=== PATIENT | male | born 1950 | race Caucasian/White ===

== ENCOUNTER 2017-10-16 05:31 | Day surgery (SDC) | payer OTHER ==
[~2017-10-16] VITALS: Ht 175.3 cm; Wt 81.6 kg
--- NOTE | ~2017-10-16 | O ---
[facility] [place] [address] OPERATIVE REPORT Name: LUCÍA TAVERAS Room #: 150-7 [facility]..#: [id number] Admission: 10/16/17 Attend Phys: Alexsander Peres MD Discharge: Date of : 52 Report #: [id number] THIS REPORT FOR: //name// CC: Danyel Peres DATE OF SERVICE: 10/16/2017 PREOPERATIVE DIAGNOSIS: Left knee medial meniscus tear. POSTOPERATIVE DIAGNOSES: 1. Left knee complex tear of the medial meniscus with displaced meniscal flap adjacent to the femoral condyle. 2. Thickened medial plica. PROCEDURE: 1. Left knee arthroscopy with partial medial meniscectomy. 2. Medial plica excision. SURGEON: Alexsander Peres MD. ANESTHESIA: LMA. COMPLICATIONS: None. SPECIMENS: None. TOURNIQUET TIME: 23 minutes. CONDITION UPON LEAVING THE OPERATING ROOM: Stable. INDICATIONS FOR PROCEDURE: The patient is a 67-year-old gentleman who has had medial-sided left knee pain. He had MRI scan shown him to have a tear of his medial meniscus and after discussion with him, he elected for left knee arthroscopy with partial medial meniscectomy. DESCRIPTION OF PROCEDURE: Risks, benefits, alternatives, complications were discussed in detail with the patient including but not limited to risk of anesthesia, risk of damage to nerves, arteries, blood vessels, risk for infection, bleeding, risk for continued knee pain, need for reoperation. Informed consent was obtained from the patient. Left knee was appropriately marked in the preoperative holding area. He was brought to the operating room and placed in supine position on operating room table. LMA anesthesia was induced without complication. Tourniquet was placed on left thigh. Left lower extremity was prepped and draped in normal sterile fashion. Timeout was performed properly identifying the patient and procedure as well as [address] [address] OPERATIVE REPORT Name: LUCÍA TAVERAS Room #: 150-7 [facility]#: [id number] Admission: 10/16/17 Attend Phys: Alexsander Peres MD Discharge: Date of : 52 Report #: [id number] instrumentation. All in the operating room were in agreement. Left lower extremity was exsanguinated, tourniquet was inflated, tourniquet time was 23 minutes. Standard anterolateral portal was established with an 11 blade through the skin. Arthroscope was introduced into the patellofemoral compartment. Diagnostic arthroscopy was undertaken. Patellofemoral compartment was visualized and found to be without pathology. Medial gutter was visualized and found to have a thickened medial plica. Medial compartment was visualized and a medial portal was established under arthroscopic visualization. There was noted to be a flap-like tear of the posterior horn and body of the medial meniscus with a displaced fragment into the medial gutter between the capsule and the medial femoral condyle. This was removed with an oscillating shaver and arthroscopic biter and smoothed back with a shaver. Notch was visualized and found to have an intact anterior cruciate ligament. Lateral compartment was visualized and found to have an intact lateral meniscus. Scope was placed back in the patellofemoral compartment and the medial plica was excised with an oscillating shaver. After this, all fluid was allowed to drain from the knee. The knee was injected with 10 mL 0.5% Marcaine. Incision was closed with 3-0 nylon. Soft dressing of Adaptic, 4 x 4, Webril, Ke wrap were applied. The patient tolerated this procedure well and went to recovery room under care of anesthesia postoperatively. By: [id number] Alexsander Peres MD /nt
[~2017-10-16 05:31] MED LIST: APPLE CIDER VI1 EAC1 PO; CO Q-10100 MG PO; CYTO RALA30 GM PO; ESTER-C 1,0001 EACH PO; FISH OIL 1,001000 M2 PO; FOSAMAX 70 MG T70 MG PO; PROBIOTIC1 EAC1 PO; RESVERATROL100 MG PO; SIMVASTATIN40 MG PO; TURMERIC500 M2 PO; VITAMIN D32000 UNI1 PO; VITAMIN K7 PO
[2017-10-16 08:30] VITALS: BP 135/78
[2017-10-16] MEDS ORDERED: HYDROCODONE-AP1 EAC6 PO (10:36)
[2017-10-16 11:10] VITALS: BP 135/78
== END 2017-10-16 11:37 | disposition home or self-care (01) ==
LOC: TBA 05:31 → OR 05:31
DX: S83.242A Other tear of medial meniscus, current injury, left knee, initial encounter (principal); M67.52 Plica syndrome, left knee; E78.00 Pure hypercholesterolemia, unspecified; Z87.891 Personal history of nicotine dependence; Z98.890 Other specified postprocedural states; Z79.891 Long term (current) use of opiate analgesic; Z79.899 Other long term (current) drug therapy; X58.XXXA Exposure to other specified factors, initial encounter; Y93.89 Activity, other specified; Y92.89 Other specified places as the place of occurrence of the external cause; Y99.8 Other external cause status
CPT/HCPCS: 50010; 50101; 50405; 51038; 54170; 56526; 62110; 62900; 70005

== ENCOUNTER → 2017-11-25 | Outpatient (CLI) | payer OTHER ==
[~2017-11-25] MED LIST changes: +HYDROCODONE-AP1 EAC6 PO
== END ==
LOC: MRI 07:06
DX: S83.242A Other tear of medial meniscus, current injury, left knee, initial encounter (principal); X58.XXXA Exposure to other specified factors, initial encounter; Y93.89 Activity, other specified; Y92.89 Other specified places as the place of occurrence of the external cause; Y99.8 Other external cause status

== ENCOUNTER 2017-12-04 05:36 | Day surgery (SDC) | payer OTHER ==
[~2017-12-04] VITALS: Ht 177.8 cm; Wt 81.6 kg
--- NOTE | ~2017-12-04 | O ---
[facility] [place] [address] OPERATIVE REPORT Name: LUCÍA TAVERAS Room #: DEP [facility]..#: [id number] Admission: 12/04/17 Attend Phys: Alexsander Peres MD Discharge: 12/04/17 Date of : 52 Report #: [id number] THIS REPORT FOR: //name// CC: Danyel Peres DATE OF SERVICE: 12/04/2017 PREOPERATIVE DIAGNOSIS: Left knee recurrent medial meniscus tear. POSTOPERATIVE DIAGNOSES: 1. Left knee recurrent medial meniscus tear. 2. Inner margin fraying, lateral meniscus. PROCEDURES: 1. Left knee arthroscopy with partial medial meniscectomy. 2. Partial lateral meniscectomy. SURGEON: Alexsander Peres MD. MANUFACTURING ENGINEERING MANAGER: Vickie Orozco PA-C. ANESTHESIA: LMA. TOURNIQUET TIME: 15 minutes. COMPLICATIONS: None. SPECIMENS: None. CONDITION UPON LEAVING THE OPERATING ROOM: Stable. INDICATIONS FOR PROCEDURE: The patient is a 67-year-old gentleman who has previously undergone left knee arthroscopy with partial medial meniscectomy. He has had continued knee pain since his knee scope and had a repeat MRI scan showing to have a tear of the posterior horn of the medial meniscus that was not present at his previous arthroscopy. After discussion with him, he elected for left knee arthroscopy with partial medial meniscectomy and debridement as needed. DESCRIPTION OF PROCEDURE: Risks, benefits, alternatives, complications were discussed in detail with the patient including but not limited to risk of anesthesia, risk of damage to nerves, arteries, blood vessels, risk for infection, bleeding, risk for continued knee pain, need for reoperation. Informed consent was obtained from the patient. Left knee was appropriately marked in the preoperative holding area. IV Ancef was given for preoperative [address] [address] OPERATIVE REPORT Name: LUCÍA TAVERAS Room #: DEP [facility] [place]#: [id number] Admission: 12/04/17 Attend Phys: Alexsander Peres MD Discharge: 12/04/17 Date of : 52 Report #: [id number] antibiotics. He was brought to the operating room and placed in supine position on operating room table. LMA anesthesia was induced without complication. Tourniquet was placed on the left thigh. Left lower extremity was prepped and draped in normal sterile fashion. Timeout was performed, properly identifying the patient and procedure as well as the instrumentation. All in the operating room were in agreement. Left lower extremity was exsanguinated, tourniquet was inflated. Tourniquet time was 15 minutes. Standard anterolateral portal was established with an 11 blade through the skin. Arthroscope was introduced into the patellofemoral compartment, diagnostic arthroscopy was undertaken. Patellofemoral compartment was visualized and found to be without pathology. Medial gutter was visualized and found to be without pathology. Medial compartment was visualized and medial portal was established under arthroscopic visualization. Probe was introduced into the medial compartment. There was a horizontal type tear of the posterior horn of the medial meniscus that was unstable. The inferior flap was resected with an arthroscopic biter and smoothed back with arthroscopic shaver. Notch was visualized and found to have an intact anterior cruciate ligament. Lateral compartment was visualized and found to have inner margin fraying of the lateral meniscus body, which was smoothed back with an arthroscopic shaver. Lateral gutter was visualized and found to be without pathology. After this, all fluid was allowed to drain from the knee. Knee was injected with 5 mL of 0.5% Marcaine. Incision was closed with 3-0 nylon. Soft dressing of Adaptic, 4 x 4, Webril, Ke wrap were applied. The patient tolerated this procedure well and went to the recovery room under the care of anesthesia postoperatively. <ELECTRONICALLY SIGNED> By: Alexsander Peres MD 12/06/17 0822 [id number] Alexsander Peres MD /nt
[2017-12-04] MEDS ORDERED: HYDROCODONE-AP1 EAC6 PO (12:31)
== END 2017-12-04 13:20 | disposition home or self-care (01) ==
LOC: OR 05:36 → TBA 05:36 → OR 06:55
DX: S83.242A Other tear of medial meniscus, current injury, left knee, initial encounter (principal); S83.282A Other tear of lateral meniscus, current injury, left knee, initial encounter; E78.00 Pure hypercholesterolemia, unspecified; Z87.891 Personal history of nicotine dependence; Z98.890 Other specified postprocedural states; Z79.899 Other long term (current) drug therapy; X58.XXXA Exposure to other specified factors, initial encounter; Y93.89 Activity, other specified; Y92.89 Other specified places as the place of occurrence of the external cause; Y99.8 Other external cause status
CPT/HCPCS: 50010; 50101; 50405; 51038; 54170; 56526; 62110; 62900; 70005